=== PATIENT | female | born 1965 | race Caucasian/White ===

== ENCOUNTER 2020-01-03 21:25 | Emergency (ER) | payer OTHER ==
[~2020-01-03] VITALS: Ht 160 cm; Wt 61.2 kg
[2020-01-03 21:25] VITALS: BP 160/77
--- NOTE | 2020-01-03 21:25 | NUR ---
PT SNOW BOUDREAUX. TAKEN TO BED 11
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
[2020-01-03] MEDS ORDERED: KETOROLAC 60 MG/2 ML VIAL IM ONE (21:30)
--- NOTE | 2020-01-03 21:44 | NUR ---
PT TAKEN TO XRAY
--- NOTE | 2020-01-03 21:59 | NUR ---
PT RETURN FROM XRAY
--- NOTE | 2020-01-03 22:25 | NUR ---
Dr. Dickson examining patient.
[2020-01-03 22:49] VITALS: BP 160/77
--- NOTE | 2020-01-03 22:49 | NUR ---
Patient discharged with v/s stable. Written and verbal after care instructions given and explained. Patient alert, oriented and verbalized understanding of instructions. Ambulatory with steady gait. All questions addressed prior to discharge. ID band removed. Patient advised to follow up with PMD. Rx of NORCO & MOTRIN given. Patient educated on indication of medication including possible reaction and side effects. Opportunity to ask questions provided and answered.
== END 2020-01-03 22:49 | disposition home or self-care (01) ==
LOC: MED 21:25
DX: S13.4XXA Sprain of ligaments of cervical spine, initial encounter (principal); R07.89 Other chest pain; I10 Essential (primary) hypertension; E07.9 Disorder of thyroid, unspecified; V89.2XXA Person injured in unspecified motor-vehicle accident, traffic, initial encounter; Y93.89 Activity, other specified; Y92.89 Other specified places as the place of occurrence of the external cause; Y99.8 Other external cause status
CPT/HCPCS: 71045; 72040; 96372; 99284; J1885